=== PATIENT | female | born 1990 | race Caucasian/White ===

== ENCOUNTER 2018-08-30 13:14 | Inpatient (IN) | payer MEDICAID ==
[~2018-08-30] VITALS: Ht 144.8 cm; Wt 64.9 kg
[2018-08-30] MEDS ORDERED: LACTATED RINGER'S 1,000 ML IV SCH (13:29)
[2018-08-30] MEDS ORDERED: LACTATED RINGER'S 1,000 ML IV PRN (13:29)
[2018-08-30] MEDS ORDERED: OXYTOCIN 30 UNITS/LR 500 ML IV PRN ×2 (13:30→15:30)
[2018-08-30] MEDS ORDERED: MISOPROSTOL 200 MCG TAB PR PRN ×2 (13:30→15:30)
[2018-08-30] MEDS ORDERED: METHYLERGONOVINE 0.2 MG INJ IM PRN ×2 (13:30→15:30)
[2018-08-30] MEDS ORDERED: LIDOCAINE 1% (MPF) 30 ML INJ INJ PRN (13:30)
[2018-08-30] MEDS ORDERED: CARBOPROST 250 MCG INJ IM PRN ×2 (13:30→15:30)
[2018-08-30] MEDS ORDERED: BUTORPHANOL 2 MG INJ IV PRN (13:30)
[2018-08-30] MEDS ORDERED: AMPICILLIN 2 GM/NS (PMX) 100 ML IV ONE (13:30)
[2018-08-30] MEDS ORDERED: BUTORPHANOL 1 MG INJ IV PRN (13:30)
[2018-08-30] MEDS ORDERED: OXYTOCIN 30 UNITS/LR 500 ML IV SCH ×3 (13:30→15:29)
[2018-08-30] MEDS ORDERED: IBUPROFEN 600 MG TAB PO PRN (13:30)
[2018-08-30] MEDS ORDERED: LIDOCAINE 1% (MPF) 30 ML INJ ONE (13:36)
[2018-08-30] MEDS ORDERED: OXYTOCIN 30 UNITS/LR 1,000 ML IV ONE (13:36)
[2018-08-30] MEDS ORDERED: AMPICILLIN 2 GM/NS (PMX) 100 ML ONE (13:37)
[2018-08-30 13:50] VITALS: Ht 144.8 cm; Wt 64.9 kg
[2018-08-30] MEDS ORDERED: METHYLERGONOVINE 0.2 MG INJ ONE (14:07)
--- NOTE | 2018-08-30 14:57 | HP ---
Date/Time of Note Date/Time of Note DATE: 08/30/18 TIME: 14:53 OB - History Hx of Present Free Text/Dictation 28-year-old 2 para 1001 with single intrauterine at 38 weeks and 5 days with a JERRY of 09/08/2017 complaining of uterine contractions. She states good movement. She denies nausea, vomiting, shortness of breath, chest pain, headache, visual changes, vaginal bleeding or LOF. Chief Complaint: Uterine contractions Last Menstrual Period: Dec 28, 2017 Estimated Due Date: Sep 08, 2018 : 2 Para: 1 Spontaneous : 0 Therapeutic : 0 Care: Good Care Ultrasounds: Normal mid trimester US Obstetrical Complications: None Medical Complications: None Past Family/Social History * Past Medical, Surgical, Family and Obstetric Histories reviewed from chart. Blood Type: O+ Rubella: immune RPR/VDRL: Negative GBS Status: Negative HBsAG: Negative OB Admission Exam Vital Signs Vital Signs Pressure 120/69, pulse rate 70/minutes, respiratory rate 16/minute, temperature 98.1 Physical Exam HEENT: WNL Heart: Rhythm Normal Lungs: Clear Abdomen: WNL Extremities: Normal Cervical Dilatation: 8cm Effacement: 100% Station: -2 Membranes: Intact Heart Rate: 130's Accelerations: Accelerations Present Decelerations: No Decelerations Varibility: Moderate Contractions on Admission: < 5 Minutes Apart Intensity: Firm Last 72 hours Lab Results CBC & BMP 08/30/18 13:30 OB Assessment/Plan Other plan: 28-year-old 2 para 1001 at 38 weeks and 5 days in active labor. - FHR: No sign of metabolic acidosis- Category I - Continuous EFM, toco - CBC, blood type and screen - Analgesia options with R/B/A discussed in detail with patient - Epidural per patient request - Please see the orders - O+/Rubella: Immune - GBS: negative Admission, procedures, expectations, risks and possible complications have been discussed in detail with the patient. Risk of vaginal delivery including but not limited to bleeding, infection, cervical laceration, placental retention, injury to fetus, blood transfusion, blood transfusion related infection, risk of anesthesia, adhesion, cervical laceration, episiotomy/laceration, possible delivery with risk of bleeding, infection, injury to other organs (bowel, bladder, ureter, vessels, nerves), injury to fetus, blood transfusion, blood transfusion related infection, risk of anesthesia, scar and hernia formation, needs for future , removal of uterus or any other indicated surgery discussed with the patient. She expressed understanding and repeats the risks. All of her questions were answered. She signed the informed consent. PHYSICIAN'S VERIFICATION OF INFORMED CONSENT The patient was counseled regarding the procedure, its indications, risks, potential complications and alternatives and any questions were answered. Consent was obtained. PLANNED PROCEDURE/TREATMENT: Vaginal delivery, episiotomy, repair of laceration possible delivery DASHA FARMER Aug 30, 2018 14:57
--- NOTE | 2018-08-30 15:00 | LDN ---
Date/Time of Note Date/Time of Note DATE: 08/30/18 TIME: 14:57 Delivery Summary 28-year-old 2 para 1001 at 38 weeks and 5 days delivered a viable female over intact perineum. Nose and mouth suctioned. Rest of body delivered. Cord clamped and cut after stopping pulsation. Baby given to the nurse. Placenta delivered intact and spontaneously with three-vessel cord. Patient tolerated procedure well Time of delivery 14:02 Weight 2995 g 8 at 1 minutes and 9 at 5 minutes EBL 300 mL Weeks of Gestation 38 weeks and 5 days Placenta Delivered: Spontaneously Meconium: none Episiotomy: No Estimated blood loss: 300 Sponge & Needle done & correct: Yes All needle counts correct: Yes Any foreign bodies felt in the: No Infant Delivery Information Sex Sex: female Apgars 1 Minute: 8 5 Minute: 9 10 Minute: 10 Suctioning Nose & mouth suctioned at jhon: Yes Umbilical Cord Umbilical cord with: 3 Vessels Cord presentations: no nuchal cord Cord Blood was obtained: Yes Mother & Baby Disposition Disposition Mom & Baby to Maternity; Good: Yes DASHA FARMER Aug 30, 2018 15:00
[2018-08-30] MEDS ORDERED: LACTATED RINGER'S 1,000 ML IV* SCH (15:29)
[2018-08-30] MEDS ORDERED: WITCH HAZEL/GLYCERIN PAD PR PRN (15:30)
[2018-08-30] MEDS ORDERED: ACETAMINOPHEN 325 MG TAB PO PRN (15:30)
[2018-08-30] MEDS ORDERED: ONDANSETRON 4 MG INJ IV PRN (15:30)
[2018-08-30] MEDS ORDERED: MAGNESIUM HYDROXIDE 30ML CUP PO PRN (15:30)
[2018-08-30] MEDS ORDERED: ZOLPIDEM 5 MG TAB PO PRN (15:30)
[2018-08-30] MEDS ORDERED: DIBUCAINE 1% 30 GM OINT TOP PRN (15:30)
[2018-08-30] MEDS ORDERED: DIPHENHYDRAMINE 50 MG INJ IV PRN (15:30)
[2018-08-30] MEDS ORDERED: SENNA/DOCUSATE NA (8.6MG/50MG) TAB PO PRN (15:30)
[2018-08-30] MEDS ORDERED: BENZOCAINE 20% 56 ML SPRAY TOP PRN (15:30)
[2018-08-30] MEDS ORDERED: LANOLIN HPA 1 PKT TOP PRN (15:30)
[2018-08-30] MEDS ORDERED: OXYCODONE/ASPIRIN (4.88/325) TAB PO PRN (15:30)
[2018-08-30 15:45] VITALS: BP 110/54; PULSE 97; RESP 18
[2018-08-30 16:30] VITALS: BP 114/63; PULSE 87; RESP 18
[2018-08-30] MEDS ORDERED: AMPICILLIN 1 GM/NS (PMX) 50 ML IV SCH (17:30)
[2018-08-30] MEDS: IBUPROFEN 600 MG TAB PO SCH (17:44)
--- NOTE | 2018-08-30 18:25 | NUR ---
EOSS. . pt, is in stable condition . fundus firm normal bleeding no complained of pain or any problem under observation .
[2018-08-30 20:10] VITALS: BP 106/56; PULSE 58; RESP 18
[2018-08-30] MEDS: DEXTROSE 5%-LR 1,000 ML IV SCH (23:29)
[2018-08-31 04:20] VITALS: BP 98/58; PULSE 77; RESP 18
--- NOTE | 2018-08-31 05:08 | NUR ---
eoss: PATIET IS NOT IN DISTRESS, VITAL SIGNS WITH IN NORMAL, BF well THE INFANT
[2018-08-31] MEDS: IBUPROFEN 600 MG TAB PO SCH ×4 (05:50→17:15)
[2018-08-31] MEDS: DEXTROSE 5%-LR 1,000 ML IV SCH (07:29)
[2018-08-31 08:00] VITALS: BP 93/48; PULSE 74; RESP 18
--- NOTE | 2018-08-31 12:45 | QN ---
Documentation Comment Reports decreased vaginal bleeding. Urinated. Ambulating. Breast-feeding. Denies any dizziness, shortness of breath or chest pain or any other complaint. Const: A&O, NAD Abd: [Soft, non tender, non distended. Fundus firm and palpable 1 cm below the umbilicus and nontender Ext: [No cyanosis, or edema], negative Homans sign no calf tenderness, no cord palpable Neuro: [Awake and alert] Psych: [Normal Mood and Affect] Laboratory Tests Test 08/30/18 13:30 08/31/18 06:03 08/31/18 06:33 White Blood Count 10.7 9.8 Red Blood Count 4.52 3.46 #L Hemoglobin 12.1 9.5 #L Hematocrit 36.9 L 28.5 #L Mean Corpuscular Volume 81.6 L 82.4 Mean Corpuscular Hemoglobin 26.8 L 27.5 L Mean Corpuscular 32.8 33.3 Hemoglobin Concent Red Cell Distribution Width 15.0 H 15.3 H Platelet Count 308 244 # Mean Platelet Volume 10.1 10.5 H Immature Granulocytes % 0.400 0.400 Neutrophils % 87.7 H 69.0 Lymphocytes % 7.2 L 22.3 Monocytes % 4.4 7.3 Eosinophils % 0.1 0.7 Basophils % 0.2 0.3 Nucleated Red Blood Cells % 0.0 0.0 Immature Granulocytes # 0.040 H 0.040 H Neutrophils # 9.4 H 6.7 Lymphocytes # 0.8 2.2 Monocytes # 0.5 0.7 Eosinophils # 0.0 0.1 Basophils # 0.0 0.0 Nucleated Red Blood Cells # 0.0 0.0 Prothrombin Time 12.0 Prothrombin Time Ratio 0.9 INR International 0.88 Normalized Ratio Activated Partial Thromboplast 27.0 Time Rapid Plasma Reagin NONREACTIVE Lab Scanned Report REFERENCE LAB Status post day #1 Mild anemia, , asymptomatic Doing well Iron twice a day with stool softener Routine care Anticipate DC home tomorrow PARDEEP FERNÁNDEZ MD Aug 31, 2018 12:45
[2018-08-31 15:55] VITALS: BP 110/54; PULSE 82; RESP 18
--- NOTE | 2018-08-31 18:25 | NUR ---
EOSS. PT, IS IN STABLE CONDITION . FUNDUS FIRM NORMAL BLEEDING . NO COMPLAINED OF PAIN OR ANY PROBLEM . UNDER OBSERVATION .
[2018-08-31 20:00] VITALS: BP 80/49; PULSE 74; RESP 18
[2018-08-31] MEDS: POLYSACCHARIDE IRON COMPLEX CAP PO SCH (20:59)
[2018-08-31] MEDS: DOCUSATE SODIUM 100 MG CAP PO SCH (20:59)
[2018-09-01] MEDS: IBUPROFEN 600 MG TAB PO SCH ×4 (00:11→17:41)
[2018-09-01 03:54] VITALS: BP 89/45; PULSE 73; RESP 17
--- NOTE | 2018-09-01 06:04 | NUR ---
EOSS: AFEBRILE. VS STABLE. BP RUNNING LOW THIS SHIFT 80s/40s . AMBULATES FULLY ON OWN. VOIDING FREELY. SMALL LOCHIA RUBRA. BONDING BEHAVIORS SEEN WITH BABY AND CONTINUES TO BREAST AND BOTTLE FEED INFANT. HANDLES BABY CONFIDENTLY AND PREFORMS ROUTINE BABY CARE DIAPER CHANGE, BURPING , ETC. ON OWN.
--- NOTE | 2018-09-01 07:15 | NUR ---
RN ASSUMED CARE AND GIVEN REPORT AT BEDSIDE FROM KENYATTA TIJERINA. PT. DENIES ANY DISTRESS AT THIS TIME AND IS FEEDING HER BABY AT THIS TIME W/ FORMULA FOR MEDICAL INDICATION.
[2018-09-01 08:47] VITALS: BP 97/52; PULSE 75; RESP 20
[2018-09-01] MEDS ORDERED: DIPHTH/TET/ACEL PERTUSS (ADULT) 0.5 ML VIAL IM* ONE (09:00)
[2018-09-01] MEDS ORDERED: MEASLES,MUMPS,RUBELLA VACCINE INJ SC* ONE (09:00)
[2018-09-01] MEDS: DOCUSATE SODIUM 100 MG CAP PO SCH (09:23)
[2018-09-01] MEDS: POLYSACCHARIDE IRON COMPLEX CAP PO SCH (09:23)
--- NOTE | 2018-09-01 10:58 | NUR ---
TDAP GIVEN. PT. STATES PAIN MEDS. EFFECTIVE. VS WNL. SMALL AMOUNT LOCHIA NOTED AND WNL. RN ENCOURAGED APPROP. HAND HYGIENE, BUT NOT LIMNITED TOO, WHEN CHANGING BABY'S DIAPER.
[2018-09-01 11:56] VITALS: BP 98/44; PULSE 81; RESP 20
[2018-09-01 15:50] VITALS: BP 90/46; PULSE 74; RESP 18
--- NOTE | 2018-09-01 17:38 | DS ---
Date/Time of Note Date/Time of Note DATE: 09/01/18 TIME: 17:37 Obstetrical Discharge Record Final Diagnosis Final Diagnosis: Term delivered Vaginal Delivery Obstetrical Delivery: Spontaneous Complications Augmentation: No Induction: No Rupture of Membranes: No Condition on Discharge Physical Assessment Last Vitals: VSS afebrile Voiding: Yes Bowel Movement: Yes Breast: Soft, non-tender Fundus: Firm Abdomen and Incision: n/a Episiotomy: N/A Calf Tenderness: No Patient Condition: Stable FIFI CAAL MD Sep 01, 2018 17:38
--- NOTE | 2018-09-01 17:39 | PD.PPDC ---
COMPANION CAREGIVER Discharge Instruction Diagnosis [id number] Final Diagnosis: [id number] s/p Condition [id number] Patient Condition: Logye2t Stable Diet [id number] Diet: [id number] Resume Regular Diet Activity/Restrictions [id number] Activity: [id number] May Shower [id number] Restrictions: [id number] No Lifting No Sexual Activity Nothing in the Vagina No [place] No Tampons, douche Follow-up Follow-up with Physician: 2, Week/Weeks Return to clinic for [id number] CARTRIDGE GAUGER Instructions: Oksce3z Fever greater than 101 Chills Worsening abdominal pain Excessive Vaginal Bleeding More than 2 pads per hour Unable to tolerate diet [id number] OB Instructions: [id number] Breast Tenderness Depression Blurried Vision Headache FIFI CAAL MD Sep 01, 2018 17:39
--- NOTE | 2018-09-01 18:35 | NUR ---
PATIENT DISCHARGED HOME WITH HER BABY IN ARMS VIA WHEELCHAIR IN STABLE CONDITION.
== END 2018-09-01 18:35 | disposition home or self-care (01) | DRG 776 ==
LOC: OBT 13:14 → L-D 13:15 → PP1 15:37 → EDSTATUS 09-08 13:24
PROVIDERS: ADMIT Obstetrics & Gynecology; ATTEND Obstetrics & Gynecology
PROC: 10E0XZZ Delivery of Products of Conception, External Approach (ICD-10-PCS; principal; 2018-08-30)
DX: O90.81 Anemia of the puerperium (principal)
CPT/HCPCS: 85025; 85610; 85730; 86592; 86850; 86900; 86901; 87340; 90686; 90715; 99464; J0290; J2210; J2590; J7120; J7121